=== PATIENT | male | born 1940 | race Caucasian/White ===

== ENCOUNTER → 2021-05-28 10:48 | Outpatient (BNVA) | payer MEDICARE, OTHER, SELFPAY | PROVIDERS: PCP Physician Assistant; Visit Provider Psychiatry & Neurology Neurology | DX: R26.9 Unspecified abnormalities of gait and mobility (principal) | CPT/HCPCS: 99212 ==

== ENCOUNTER → 2021-10-02 09:33 | Outpatient (BNVA) | payer MEDICARE, OTHER, SELFPAY | PROVIDERS: PCP Physician Assistant; Visit Provider Psychiatry & Neurology Neurology | DX: R26.9 Unspecified abnormalities of gait and mobility (principal); R42 Dizziness and giddiness; R29.6 Repeated falls | CPT/HCPCS: 99212 ==

== ENCOUNTER → 2022-01-07 15:24 | Outpatient (BNVA) | payer MEDICARE, OTHER, SELFPAY | PROVIDERS: PCP Physician Assistant; Visit Provider Psychiatry & Neurology Neurology | DX: R26.9 Unspecified abnormalities of gait and mobility (principal); R42 Dizziness and giddiness; R29.6 Repeated falls; I49.9 Cardiac arrhythmia, unspecified | CPT/HCPCS: 99212 ==

== ENCOUNTER → 2022-07-07 11:26 | Outpatient (BNVA) | payer MEDICARE, OTHER, SELFPAY | PROVIDERS: PCP Physician Assistant; Visit Provider Psychiatry & Neurology Neurology | DX: R26.9 Unspecified abnormalities of gait and mobility (principal); R42 Dizziness and giddiness; R29.6 Repeated falls | CPT/HCPCS: 99212 ==

== ENCOUNTER 2023-07-07 08:49 | Outpatient (AMB) | payer MEDICARE, OTHER, SELFPAY ==
--- NOTE | 2023-07-07 08:56 | A.OFFVIS_ITS ---
Intake Vital Signs 07/07/23 08:57 Height 5 ft 8 in Weight 154 lb BMI 23.4 BP 124/80 Blood Pressure Location Rt brachial Position Sitting Respiration 16 Pulse 75 Pulse Source Pulse Oximeter Pulse Oximetry (%) 97 Oxygen Delivery Method Room Air Intake Visit Reasons: 1yr follow up Gait disorder-CONF Intake Note: Pt presents for a one year follow up for gait disorder. Mate Fourth Required: No Allergies No Known Allergies Allergy (Verified 07/07/23 08:56) Medication List - Last Reconciled 07/07/23 by Fernanda Oliveira MD acetaminophen 650 mg PO Q6H calcium carbonate (Calcium) 600 mg PO DAILY cholecalciferol (vitamin D3) 100 mcg PO DAILY hydralazine 25 mg PO DAILY lamotrigine 100 mg PO DAILY metoprolol succinate ER 12.5 mg PO DAILY mirtazapine 30 mg PO BEDTIME multivitamin (Daily Multi-Vitamin tablet) 1 tab PO DAILY pantoprazole 40 mg PO DAILY pravastatin 20 mg PO DAILY tamsulosin 0.4 mg PO DAILY venlafaxine ER 150 mg PO DAILY HPI HPI Comments History of Present Illness Details 82-year-old male comes for follow up of his vertigo multifactorial gait disorder and ICA atherosclerosis. He was doing fine until 2 weeks ago. He developed discomfort in the right groin and swelling. The swelling disappears when he lies supine and worsens when he strains. CT and labs were OK. No falls since last visit . he had mild vertigo and diplopia occasionally.they last for few seconds. He was [facility] a [facility]- walks 1- 1 1/2 miles a day and he does not use a cane. History- On July 25 2021 he was on vacation in [facility]. He was stepping up and fell- unwitnessed fall. He was not using the walker and he is not sure if he held the railing. he had 2 right rib fracture, right clavicle fracture, subdural hematoma- 2mm. he lost consiousness briefly. He came back home 4 days later and was admitted to rehab for 3 weeks . On September 05 he had another fall. He did not have a walker, it was a rainy day, it was when they stopped at a gas station he tripped.He 7 right rib fractures , 5 titanium plates , partially collapsed lung hemothorax , transferred to [facility]. He came to [place] 2 weeks ago and was discharged last week. He is unsteady and weak on the right.According to his daughter when anxious he is worse and he frequently rushes to the bathroom. [facility] Medical History (Updated 07/07/23 @ 09:32 by Fernanda Oliveira MD) Groin fullness Cataract fragments in both eyes following surgery History of fractured rib History of rib fracture ICAO (internal carotid artery occlusion) Gait disorder Vertigo Anxiety HTN (hypertension) Depression Surgical History S/P Mohs surgery for basal cell carcinoma H/O hernia repair History of cholecystectomy Family History Mother Heart disease Cancer Father Bipolar depression Heavy smoker Aneurysm Social History Alcohol intake: never Patient Tobacco Use Status: Never used Tobacco Physical Exam Vital Signs: Last Vital Signs Pulse 75 07/07/23 08:57 Resp 16 07/07/23 08:57 BP 124/80 07/07/23 08:57 Pulse Ox 97 07/07/23 08:57 Oxygen Delivery Method Room Air 07/07/23 08:57 BMI result Body Mass Index 23.4 Const Other: mild swelling in the right inguinal region General: cooperative, healthy appearing, comfortable and no acute distress Nutritional Appearance: average body habitus Orientation/consciousness: patient oriented x3 Neuro General: patient oriented x3, tone normal, moves all extremities, Normal light touch and pain sensation and CN's II-XI intact bilaterally Gait exam (Neuro): Other gait observations present (mild stoop and slowness, good balance, good stride , can walk independently) Coordination: [id number] test normal Psych Appearance: grossly normal Assessment & Plan Assessment & Plan (1) Gait disorder: Code(s): R26.9 - Unspecified abnormalities of gait and mobility (2) Vertigo: Code(s): R42 - Dizziness and giddiness (3) Groin fullness: Comment: ? inguinal hernia Code(s): R19.00 - Intra-abdominal and pelvic swelling, mass and lump, unspecified site Plan will refer to Gen surgery for possible inguinal hernia Continue exercises. Orders: Referrals General Surgery Referral R19.00 - Intra-abdominal and pelvic swelling, mass and lump, unspecified site Coding Level of Care Code Est Pt Level 4 (02750) Diagnoses Gait disorder R26.9 Vertigo R42 Groin fullness R19.00
[2023-07-07 08:57] VITALS: BP 124/80; PULSE 75; RESP 16; O2SAT 97; BMI 23.4
== END 2023-07-07 09:41 | disposition home or self-care (01) ==
LOC: HO.HSMS 08:49
PROVIDERS: PCP Physician Assistant; Visit Provider Psychiatry & Neurology Neurology
DX: R26.9 Unspecified abnormalities of gait and mobility (principal); R42 Dizziness and giddiness; R19.00 Intra-abdominal and pelvic swelling, mass and lump, unspecified site
CPT/HCPCS: 99214

== ENCOUNTER → 2023-07-07 08:49 | Outpatient (BNVA) | payer MEDICARE, OTHER, SELFPAY | PROVIDERS: PCP Physician Assistant; Visit Provider Psychiatry & Neurology Neurology | DX: R26.9 Unspecified abnormalities of gait and mobility (principal); R42 Dizziness and giddiness; R29.6 Repeated falls; R19.00 Intra-abdominal and pelvic swelling, mass and lump, unspecified site; I63.239 Cerebral infarction due to unspecified occlusion or stenosis of unspecified carotid artery | CPT/HCPCS: 99212 ==

== ENCOUNTER 2023-07-19 10:54 | Outpatient (AMB) | payer MEDICARE, OTHER, SELFPAY ==
--- NOTE | 2023-07-19 10:56 | A.OFFVIS_ITS ---
Intake Vital Signs 07/19/23 11:01 Height 5 ft 7 in Weight 154 lb BMI 24.1 BP 160/81 H Blood Pressure Location Rt brachial Position Sitting Pulse 72 Intake Visit Reasons: Abd/pelvic swelling Intake Note: Patient referred by Dr. Oliveira for abd/pelvic swelling. Patient c/o: abd pain. Strike Off Machine Operator Required: No Accompanied by: Spouse Allergies No Known Allergies Allergy (Verified 07/19/23 11:00) HPI HPI Comments History of Present Illness Details Patient presents with his . He has had a several week history of right groin discomfort. Because of progression symptoms, his medical doctor ordered a CT scan which demonstrated right inguinal hernia. Patient otherwise tolerates his diet. He is having regular bowel habits. He has had an unsteady gait and had fallen recently and uses a cane for steadiness. He had to have back surgery as well. Chart was reviewed and patient evaluated [facility] Medical History Groin fullness Cataract fragments in both eyes following surgery History of fractured rib History of rib fracture ICAO (internal carotid artery occlusion) Gait disorder Vertigo Anxiety HTN (hypertension) Depression Surgical History (Updated 07/19/23 @ 11:10 by Prashanth Schmidt MD) History of thoracic surgery S/P Mohs surgery for basal cell carcinoma H/O hernia repair History of cholecystectomy Family History Mother Heart disease Cancer Father Bipolar depression Heavy smoker Aneurysm Social History Alcohol intake: never Patient Tobacco Use Status: Never used Tobacco Physical Exam Vital Signs: Last Vital Signs Pulse 72 07/19/23 11:01 BP 160/81 H 07/19/23 11:01 BMI result Body Mass Index 24.1 Chest Other: Chest breath sounds bilaterally, HS 1 in 2 GI Other: Patient was examined both supine and standing with Valsalva. Left groin negative. Genitalia within normal limits. Moderately sized right inguinal hernia, reducible Assessment & Plan Assessment & Plan (1) Right inguinal hernia: Code(s): K40.90 - Unilateral inguinal hernia, without obstruction or gangrene, not specified as recurrent Plan Risks, benefits, alternatives open right inguinal hernia repair with mesh reviewed the patient included but not limited to bleeding, infection, recurrence, numbness, pain, scarring the patient was to proceed. All questions answered. Arrangements were made for this. Coding Level of Care Code New Pt Level 5 (32303) Diagnoses Right inguinal hernia K40.90
[2023-07-19 11:01] VITALS: BP 160/81; PULSE 72; BMI 24.1
== END 2023-07-19 11:14 | disposition home or self-care (01) ==
PROVIDERS: PCP Physician Assistant; Referring Provider Psychiatry & Neurology Neurology; Visit Provider Surgery
DX: K40.90 Unilateral inguinal hernia, without obstruction or gangrene, not specified as recurrent (principal)
CPT/HCPCS: 99204

== ENCOUNTER → 2023-07-19 10:54 | Outpatient (BNVA) | payer MEDICARE, OTHER, SELFPAY | PROVIDERS: PCP Physician Assistant; Referring Provider Psychiatry & Neurology Neurology; Visit Provider Surgery | DX: K40.90 Unilateral inguinal hernia, without obstruction or gangrene, not specified as recurrent (principal) | CPT/HCPCS: 99202 ==

== ENCOUNTER 2023-08-12 08:43 | Day surgery (SDC) | payer MEDICARE, OTHER, SELFPAY ==
[2023-08-03 13:16] VITALS: BMI 23.8
[2023-08-03 13:21] VITALS: BP 131/72; PULSE 66; RESP 20; O2SAT 96
--- NOTE | 2023-08-11 12:22 | MHC.SHP ---
Pre-Procedural Eval Section A - 24 Hr Update-Section A only Date of Service: 08/11/23 The patient is an INPATIENT: No Changes since office visit: No Cold of Flu in the past 2 weeks, No New Medical Problems, No Changes in Medication and No Patient answered all questions Section B - Complete if H&P > 30 days Chief Complaint: Unilateral inguinal hernia, without obstruction Allergies: Allergies Allergy/AdvReac Type Severity Reaction Status Date / Time No Known Allergies Allergy Verified 07/19/23 11:00 Plan I have reviewed the history and physical and performed a pertinent physical examination on my patient. No changes have occurred unless specified. Time Spent With Patient Time: Total time managing care of this patient today ____ minutes.
[2023-08-12 10:20] VITALS: BP 140/73; PULSE 65; RESP 16; TEMP 36.4; O2SAT 98
[2023-08-12] MEDS: Lactated Ringers 1,000 ML 100 ML IVCONT (10:20)
--- NOTE | 2023-08-12 13:15 | P.CONAN_ITS ---
Documented by User: Fe Riggs NP 08/10/23 14:30 HPI - Anesthesia Eval Consult details Narrative: 82yo M for Right OPEN Hernia Inguinal Reducible with mesh, 08/12/23 No recent illness No CP/SOB with very limited activity d/t hernia GERD ICA occlusion - follows [facility] Hx fall with fx ribs and punctured lung R side - s/p evacuation of fibrothorax/hardware Follows [facility] for htn, 2021 w/u for recurrent falls (holter showed freq PVC's, no arrthymia/pauses) PMFSH Active Problems Active Problems: All Active Problems Right inguinal hernia (Acute) Irregular heart beat (Acute) Falls frequently (Acute) Groin fullness (Acute) Vertigo (Acute) Gait disorder (Acute) Anxiety (Acute) HTN (hypertension) (Acute) Depression (Acute) Past Medical History Medical History (Updated 08/03/23 @ 13:07 by Candi Douglas RN) Bleeding gastric ulcer GERD (gastroesophageal reflux disease) Chronic renal insufficiency Bipolar disorder Fracture, ribs Irregular heartbeat Multifactorial gait disorder Basal cell carcinoma Groin fullness Cataract fragments in both eyes following surgery History of fractured rib ICAO (internal carotid artery occlusion) Gait disorder Vertigo Anxiety HTN (hypertension) Depression Family History Family History Mother Heart disease Cancer Father Bipolar depression Heavy smoker Aneurysm Family history of problems with anesthesia: No Surgical History Surgical History (Updated 08/03/23 @ 13:09 by Candi Douglas RN) History of esophagogastroduodenoscopy (EGD) H/O colonoscopy Hx of bilateral cataract extraction History of thoracic surgery S/P Mohs surgery for basal cell carcinoma H/O hernia repair History of cholecystectomy History of Problems with Anesthesia: No Social History Social History Are you a primary home visit field care manager to a significant other at home: No Do you presently have visiting nurse or other home services: No Alcohol intake: never Patient Tobacco Use Status: Never used Tobacco Have you been hit, kicked, punched, or otherwise hurt by someone within the past year? If so, by whom?: No Are you DNR?: No Advance Directives: Yes ( is HCP) Advance Directives Information Provided: Yes (will bring copy DOS) Advance Directives on File: Yes Advance Directives Date on File: 08/12/23 Recently lost weight without trying: No Eating poorly because of decreased appetite: No Nutrition Risks: Surgical patient >75years Poor oral hygiene: No (possible one extracted molar upper right) Meds Allergies Allergy/AdvReac Type Severity Reaction Status Date / Time No Known Allergies Allergy Verified 07/19/23 11:00 Home Medications ?Medication ?Instructions ?Recorded ?Confirmed ?Last Taken ?Type lamotrigine 100 mg tablet 100 mg PO QAM 05/28/21 08/12/23 08/11/23 History mirtazapine 30 mg tablet 30 mg PO BEDTIME 05/28/21 08/12/23 08/11/23 History tamsulosin 0.4 mg capsule 0.4 mg PO BEDTIME 05/28/21 08/12/23 08/11/23 History venlafaxine 150 mg 150 mg PO QAM 05/28/21 08/12/23 08/11/23 History capsule,extended release 24 hr acetaminophen 325 mg tablet 650 mg PO TID 10/02/21 08/03/23 Unknown History pantoprazole 40 mg tablet,delayed 40 mg PO QAM 10/02/21 08/12/23 08/12/23 History release pravastatin 20 mg tablet 20 mg PO BEDTIME 10/02/21 08/12/23 08/11/23 History calcium carbonate (Calcium 600) 600 mg PO DAILY 01/07/22 08/12/23 08/11/23 History cholecalciferol (vitamin D3) 50 100 mcg PO DAILY 01/07/22 08/12/23 08/11/23 History mcg (2,000 unit) capsule hydralazine 25 mg tablet 50 mg PO QAM 01/07/22 08/12/23 08/12/23 History multivitamin (Daily Multi-Vitamin 1 tab PO DAILY 01/07/22 08/12/23 08/11/23 History tablet) metoprolol succinate 25 mg 12.5 mg PO QPM 07/07/23 08/12/23 08/11/23 History tablet,extended release 24 hr lorazepam 0.5 mg tablet 0.5 mg PO DAILY PRN Anxiety 07/19/23 08/03/23 Unknown History alendronate 70 mg tablet 70 mg PO QWEEK 08/03/23 08/03/23 Unknown History hydralazine 25 mg tablet 25 mg PO BEDTIME 08/03/23 08/12/23 08/11/23 History lamotrigine 25 mg tablet 50 mg PO BEDTIME 08/03/23 08/12/23 08/11/23 History Exam Height,Weight and Vital Signs: Height 5 ft 7 in Weight 68.946 kg Vital Signs Pulse Rate 66 08/03/23 13:21 Respiratory Rate 20 08/03/23 13:21 Blood Pressure 131/72 08/03/23 13:21 Pulse Oximetry 96 08/03/23 13:21 Oxygen Delivery Method Room Air 08/03/23 13:21 Pulse Rate 66 08/03/23 13:21 Respiratory Rate 20 08/03/23 13:21 Blood Pressure 131/72 08/03/23 13:21 Pulse Oximetry 96 08/03/23 13:21 Oxygen Delivery Method Room Air 08/03/23 13:21 Pertinent Lab Results Pertinent Lab Results: CBC and CMP 06/2023 from outside facility WNL except mild elevated BUN/Creat (known CKD) Narrative Narrative: EKG 04/2023 SR @ 69 LVH Borderline prolonged QTc Carotid US 2020 Bilat ICA <50% stenosis Heterogenic plaque Stress Echo 05/2023 [place], freq PVC Airway Mallampati Class: II TM Dist: >3cm Neck ROM: Full Loose/Missing/Broken Teeth: No Heart: RRR Lungs: CTAB Assessment and Plan Assessment Anesthesia Assessment: Anesthesia Plan Discussed and PAT Visit Final Anesthetic Review Family History of Problems with Anesthesia: No History of Problems with Anesthesia: No Documented by User: Megan Mckeon DO 08/12/23 13:32 REPLACED BY [facility] Past Medical History Medical History (Updated 08/03/23 @ 13:07 by Candi Douglas RN) Bleeding gastric ulcer GERD (gastroesophageal reflux disease) Chronic renal insufficiency Bipolar disorder Fracture, ribs Irregular heartbeat Multifactorial gait disorder Basal cell carcinoma Groin fullness Cataract fragments in both eyes following surgery History of fractured rib ICAO (internal carotid artery occlusion) Gait disorder Vertigo Anxiety HTN (hypertension) Depression Family History Family History Mother Heart disease Cancer Father Bipolar depression Heavy smoker Aneurysm Family history of problems with anesthesia: No Surgical History Surgical History (Updated 08/03/23 @ 13:09 by Candi Douglas RN) History of esophagogastroduodenoscopy (EGD) H/O colonoscopy Hx of bilateral cataract extraction History of thoracic surgery S/P Mohs surgery for basal cell carcinoma H/O hernia repair History of cholecystectomy History of Problems with Anesthesia: No Social History Social History Are you a primary home visit field care manager to a significant other at home: No Do you presently have visiting nurse or other home services: No Alcohol intake: never Patient Tobacco Use Status: Never used Tobacco Have you been hit, kicked, punched, or otherwise hurt by someone within the past year? If so, by whom?: No Are you DNR?: No Advance Directives: Yes ( is HCP) Advance Directives Information Provided: Yes (will bring copy DOS) Advance Directives on File: Yes Advance Directives Date on File: 08/12/23 Recently lost weight without trying: No Eating poorly because of decreased appetite: No Nutrition Risks: Surgical patient >75years Poor oral hygiene: No (possible one extracted molar upper right) Meds Allergies Allergy/AdvReac Type Severity Reaction Status Date / Time No Known Allergies Allergy Verified 07/19/23 11:00 Home Medications ?Medication ?Instructions ?Recorded ?Confirmed ?Last Taken ?Type lamotrigine 100 mg tablet 100 mg PO QAM 05/28/21 08/12/23 08/11/23 History mirtazapine 30 mg tablet 30 mg PO BEDTIME 05/28/21 08/12/23 08/11/23 History tamsulosin 0.4 mg capsule 0.4 mg PO BEDTIME 05/28/21 08/12/23 08/11/23 History venlafaxine 150 mg 150 mg PO QAM 05/28/21 08/12/23 08/11/23 History capsule,extended release 24 hr acetaminophen 325 mg tablet 650 mg PO TID 10/02/21 08/03/23 Unknown History pantoprazole 40 mg tablet,delayed 40 mg PO QAM 10/02/21 08/12/23 08/12/23 History release pravastatin 20 mg tablet 20 mg PO BEDTIME 10/02/21 08/12/23 08/11/23 History calcium carbonate (Calcium 600) 600 mg PO DAILY 01/07/22 08/12/23 08/11/23 History cholecalciferol (vitamin D3) 50 100 mcg PO DAILY 01/07/22 08/12/23 08/11/23 History mcg (2,000 unit) capsule hydralazine 25 mg tablet 50 mg PO QAM 01/07/22 08/12/23 08/12/23 History multivitamin (Daily Multi-Vitamin 1 tab PO DAILY 01/07/22 08/12/23 08/11/23 History tablet) metoprolol succinate 25 mg 12.5 mg PO QPM 07/07/23 08/12/23 08/11/23 History tablet,extended release 24 hr lorazepam 0.5 mg tablet 0.5 mg PO DAILY PRN Anxiety 07/19/23 08/03/23 Unknown History alendronate 70 mg tablet 70 mg PO QWEEK 08/03/23 08/03/23 Unknown History hydralazine 25 mg tablet 25 mg PO BEDTIME 08/03/23 08/12/23 08/11/23 History lamotrigine 25 mg tablet 50 mg PO BEDTIME 08/03/23 08/12/23 08/11/23 History Exam Exam Date and Time: August 12, 2023 1320 Height,Weight and Vital Signs: Height 5 ft 7 in Weight 68.946 kg Vital Signs Pulse Rate 66 08/03/23 13:21 Respiratory Rate 20 08/03/23 13:21 Blood Pressure 131/72 08/03/23 13:21 Pulse Oximetry 96 08/03/23 13:21 Oxygen Delivery Method Room Air 08/03/23 13:21 Pulse Rate 66 08/03/23 13:21 Respiratory Rate 20 08/03/23 13:21 Blood Pressure 131/72 08/03/23 13:21 Pulse Oximetry 96 08/03/23 13:21 Oxygen Delivery Method Room Air 08/03/23 13:21 Vital Signs Pulse Rate 66 08/03/23 13:21 Respiratory Rate 20 08/03/23 13:21 Blood Pressure 131/72 08/03/23 13:21 Pulse Oximetry 96 08/03/23 13:21 Oxygen Delivery Method Room Air 08/03/23 13:21 Temperature 97.5 F 08/12/23 10:20 Pulse Rate 65 08/12/23 10:20 Respiratory Rate 16 08/12/23 10:20 Blood Pressure 140/73 H 08/12/23 10:20 Pulse Oximetry 98 08/12/23 10:20 Oxygen Delivery Method Room Air 08/12/23 10:20 Airway Mallampati Class: II TM Dist: >3cm Neck ROM: Full Loose/Missing/Broken Teeth: No (patient denies any loose or broken teeth) Assessment and Plan Final Anesthetic Review Family History of Problems with Anesthesia: No History of Problems with Anesthesia: No NPO: Yes ASA Class: III Final Preanesthetic Review: No Changes in Pt Med Stat, Meds/Allgs Chart Reviewed, Consent Obtained/Reviewed and Anes Risks/Benef Reviewed Patient Risk: Intermediate Procedure Risk: Low Anesthetic Plan Anesthetic Plan: MAC: and Agree w/ Assess. and Plan Disposition: Standard PACU
--- NOTE | 2023-08-12 14:04 | P.OP_ITS ---
Operative Note Operative Note Date of Service: 08/12/23 Narrative: Preoperative diagnosis: [] Symptomatic right inguinal hernia Postop diagnosis: [] The same Procedure [] open repair right inguinal hernia with Bard mesh Surgeon: [] Brayan Plastic Boat Patcher: [] Type of Anesthesia: [] MAC Indication for surgery: [] Very large indirect right inguinal hernia. No direct hernia. Findings: [] Patient brought to the operating room, placed on operative table in supine position, after an adequate level of MAC anesthesia was induced, the right groin was prepped and draped in usual sterile fashion. Ilioinguinal block with 0.5% Marcaine/1% lidocaine was initially undertaken and a small right para inguinal incision was made and carried down through skin, subcutaneous tissue, and Stephanie's fascia. External oblique fibers were opened their direction with care to isolate and preserve the ilioinguinal nerve throughout the procedure. Spermatic cord was identified and retracted from the field. Exploration of the cord demonstrated very large indirect hernia sac which was reduced. No direct hernia was demonstrated. A Bard plug was placed in the indirect defect and sutured inferiorly to the inguinal ligament, and superiorly to the transversalis fascia using interrupted 0 Ethibond suture. At completion of procedure, mesh was in good position and covered the inguinal floor as well with no tension or gallops. Wound was irrigated, secured hemostasis, and closed in the following manner; external oblique fascia was closed using running 2-0 Vicryl suture. Stephanie's fascia was reapproximated using interrupted 3-0 Vicryl sutures. Interrupted inverted deep dermal 3-0 Vicryl sutures followed by running subcuticular 4-0 Vicryl sutures were placed. Steri-Strips and sterile dressings were applied. Incision was infiltrated 0.5% Marcaine/1% lidocaine at completion. Sponge, needle, and instrument counts were reported correct. Patient tolerated the procedure well and emerged from anesthesia stable condition. EBL minimal. Ipsilateral testicle was intrascrotal at completion.
[2023-08-12 14:10] VITALS: BP 149/84; PULSE 81; RESP 18; TEMP 36.6; O2SAT 94
[2023-08-12 14:25] VITALS: BP 156/79; PULSE 73; RESP 20; O2SAT 94
[2023-08-12 14:38] VITALS: RESP 20
[2023-08-12] MEDS: fentaNYL citrate/PF 100 MCG/2 ML VIAL 25 MCG IVPUSH (14:38)
[2023-08-12 14:40] VITALS: BP 150/82; PULSE 70; RESP 18; O2SAT 92
[2023-08-12 14:43] VITALS: BP 156/85; PULSE 66; RESP 18; O2SAT 94
== END 2023-08-12 15:33 | disposition home or self-care (01) ==
PROVIDERS: PCP Physician Assistant; Visit Provider Surgery
PROC: (CPT 49505; principal; 2023-08-12 12:00)
DX: K40.90 Unilateral inguinal hernia, without obstruction or gangrene, not specified as recurrent (principal); I12.9 Hypertensive chronic kidney disease with stage 1 through stage 4 chronic kidney disease, or unspecified chronic kidney disease; N18.31 Chronic kidney disease, stage 3a; R26.9 Unspecified abnormalities of gait and mobility; F32.A Depression, unspecified; F41.9 Anxiety disorder, unspecified; R42 Dizziness and giddiness; Z79.899 Other long term (current) drug therapy; Z91.81 History of falling; Z87.81 Personal history of (healed) traumatic fracture; Z98.890 Other specified postprocedural states
CPT/HCPCS: 49505; C1781; J0131; J0690; J1100; J2704; J2795; J3010

== ENCOUNTER → 2023-08-12 08:43 | Outpatient (BNV) | payer MEDICARE, OTHER, SELFPAY | PROVIDERS: PCP Physician Assistant; Visit Provider Surgery | DX: K40.90 Unilateral inguinal hernia, without obstruction or gangrene, not specified as recurrent (principal) | CPT/HCPCS: 49505 ==

== ENCOUNTER 2023-08-23 10:43 | Outpatient (AMB) | payer MEDICARE, OTHER, SELFPAY ==
--- NOTE | 2023-08-23 10:52 | MHC.OFFVIS ---
Intake Visit Reasons: S/P RIH w/mesh Intake Note: Patient here s/p RIH w/mesh. Reports incisions healing well. Denies redness, oozing. Patient c/o: pain, tenderness with touch. Rx pain meds caused constipation. Daughter is RN and advised alternating tylenol with ibuprofen as needed. SX: 08-12-23. Diving Fisher Required: No Accompanied by: Spouse Allergies No Known Allergies Allergy (Verified 08/23/23 10:53) HPI Comments Details: Patient presents with his for follow-up. Aside from incisional discomfort which is improving, patient is otherwise doing well. He has tolerating a diet. He has history of constipation but had not an issue with it. He is increasing his activity level. [facility] Medical History Bleeding gastric ulcer GERD (gastroesophageal reflux disease) Chronic renal insufficiency Bipolar disorder Fracture, ribs Irregular heartbeat Multifactorial gait disorder Basal cell carcinoma Groin fullness Cataract fragments in both eyes following surgery History of fractured rib ICAO (internal carotid artery occlusion) Gait disorder Vertigo Anxiety HTN (hypertension) Depression Surgical History Right inguinal hernia (08/12/23) History of esophagogastroduodenoscopy (EGD) H/O colonoscopy Hx of bilateral cataract extraction History of thoracic surgery S/P Mohs surgery for basal cell carcinoma H/O hernia repair History of cholecystectomy Family History Mother Heart disease Cancer Father Bipolar depression Heavy smoker Aneurysm Social History Are you a primary aged or disabled care worker to a significant other at home: No Do you presently have visiting nurse or other home services: No Alcohol intake: never Comment: counts correct Patient Tobacco Use Status: Never used Tobacco Advance Directives Date on File: 08/12/23 Physical Exam GI Other: Abdomen is soft. Wound clean dry and intact healing well Assessment & Plan Assessment & Plan (1) Postop check: Code(s): Z09 - Encounter for follow-up examination after completed treatment for conditions other than malignant neoplasm Category: Surgical Plan Patient and have been given local instructions, and patient will otherwise follow-up p.r.n.. All questions answered. Coding Level of Care Code Global (81301) Diagnoses Postop check Z09
== END 2023-08-23 11:11 | disposition home or self-care (01) ==
PROVIDERS: PCP Physician Assistant; Visit Provider Surgery
DX: Z09 Encounter for follow-up examination after completed treatment for conditions other than malignant neoplasm (principal)
CPT/HCPCS: 99024

== ENCOUNTER → 2023-08-23 10:43 | Outpatient (BNVA) | payer MEDICARE, OTHER, SELFPAY | PROVIDERS: PCP Physician Assistant; Visit Provider Surgery | DX: Z09 Encounter for follow-up examination after completed treatment for conditions other than malignant neoplasm (principal); Z87.19 Personal history of other diseases of the digestive system | CPT/HCPCS: 99212 ==

== ENCOUNTER 2024-10-17 08:58 | Outpatient (AMB) | payer MEDICARE, OTHER, SELFPAY ==
--- NOTE | 2024-10-17 09:01 | A.OFFVIS_ITS ---
Vital Signs 10/17/24 09:04 Height 5 ft 7 in Weight 148 lb BMI 23.2 BP 132/80 Blood Pressure Location Rt brachial Position Sitting Intake Visit Reasons: Follow up Intake Note: Patient referred to general surgery note scanned 08/22/24 Allergies No Known Allergies Allergy (Verified 10/17/24 09:05) HPI Comments Details: 83-year-old male comes for follow up of his vertigo multifactorial gait disorder and ICA atherosclerosis after 18 mths . He had right femur fracture July 2024 after a fall and had surgery. He was reaching for water when he was in his garage he backed up or tripped . He was on walker and now he is using a cane . He still has 2 sessions of PT .He denies dizziness . History- On July 25 2021 he was on vacation in [facility]. He was stepping up and fell- unwitnessed fall. He was not using the walker and he is not sure if he held the railing. he had 2 right rib fracture, right clavicle fracture, subdural hematoma- 2mm. he lost consiousness briefly. He came back home 4 days later and was admitted to rehab for 3 weeks . On September 05 he had another fall. He did not have a walker, it was a rainy day, it was when they stopped at a gas station he tripped.He 7 right rib fractures , 5 titanium plates , partially collapsed lung hemothorax , transferred to [facility]. He came to [place] 2 weeks ago and was discharged last week. He is unsteady and weak on the right.According to his daughter when anxious he is worse and he frequently rushes to the bathroom. [facility] Medical History Bleeding gastric ulcer GERD (gastroesophageal reflux disease) Chronic renal insufficiency Bipolar disorder Fracture, ribs Irregular heartbeat Multifactorial gait disorder Basal cell carcinoma Groin fullness Cataract fragments in both eyes following surgery History of fractured rib ICAO (internal carotid artery occlusion) Gait disorder Vertigo Anxiety HTN (hypertension) Depression Surgical History Right inguinal hernia (08/12/23) History of esophagogastroduodenoscopy (EGD) H/O colonoscopy Hx of bilateral cataract extraction History of thoracic surgery S/P Mohs surgery for basal cell carcinoma H/O hernia repair History of cholecystectomy Family History Mother Heart disease Cancer Father Bipolar depression Heavy smoker Aneurysm Social History Are you a primary career development coordinator/teacher to a significant other at home: No Do you presently have visiting nurse or other home services: No Alcohol intake: never Comment: counts correct Patient Tobacco Use Status: Never used Tobacco Advance Directives Date on File: 08/12/23 Physical Exam Vital Signs: Last Vital Signs BP 132/80 10/17/24 09:04 BMI result Body Mass Index 23.2 Const General: cooperative, healthy appearing, comfortable and no acute distress Nutritional Appearance: average body habitus Orientation/consciousness: patient oriented x3 Neuro General: patient oriented x3, tone normal, moves all extremities, Normal light touch and pain sensation and CN's II-XI intact bilaterally Gait exam (Neuro): Other gait observations present (mild stoop and slowness, good balance, good stride , can walk good with can) Coordination: [id number] test normal Psych Appearance: grossly normal Assessment & Plan Assessment & Plan (1) Gait disorder: Code(s): R26.9 - Unspecified abnormalities of gait and mobility Category: Medical (2) Vertigo: Code(s): R42 - Dizziness and giddiness Category: Medical Plan Discussed fall prevention Continue exercises. Coding Level of Care Code Est Pt Level 4 (96825) Diagnoses Gait disorder R26.9 Vertigo R42
[2024-10-17 09:04] VITALS: BP 132/80; BMI 23.2
--- OUTSIDE RECORDS SUMMARY | 2024-10-17 09:12 | XMS_ITS | Clinical Summary ---
Author Organization [facility] Address [address] [place] [address] Care Team Providers Care Inorganic Chemistry Professor Name Role Phone Anamaria Lechuga PA-C Primary Care Provider Allergies No known active allergies Medications Medication Sig Dispensed Refills Start Date End Date Status amLODIPine (NORVASC) tablet 5 mg Take 5 mg by mouth daily. 0 09/15/2016 Active pantoprazole (PROTONIX) 40 MG tablet Take 40 mg by mouth daily. 0 07/29/2021 Active venlafaxine (EFFEXOR-XR) 150 MG 24 hr capsule Take 150 mg by mouth daily. 0 02/18/2010 Active lamoTRIgine (LaMICtal) 100 MG tablet Take 1 tablet by mouth daily. 0 02/18/2010 Active hydrALAZINE (APRESOLINE) 50 MG tablet Take 50 mg by mouth every morning. 50 mg (1 tab) by mouth every morning and 2 mg (1/2 tab) by mouth every evening 0 07/10/2021 Active tamsulosin (FLOMAX) 0.4 MG CAPS Take 1 capsule by mouth every evening. 0 Active pravastatin (PRAVACHOL) tablet 20 mg Take 1 tablet by mouth every night at bedtime. 0 07/29/2021 Active LORazepam (ATIVAN) 0.5 MG tablet Take 1 tablet by mouth 3 (three) times a day as needed. 0 12/20/2007 Active mirtazapine (REMERON) 30 MG tablet Take 1 tablet by mouth every night at bedtime as needed. 0 02/18/2010 Active acetaminophen (TYLENOL) 325 MG tablet Take 2 tablets (650 mg total) by mouth every 6 (six) hours. 120 tablet 0 09/15/2021 Active docusate sodium 100 MG CAPS Take 100 mg by mouth 2 (two) times a day as needed for constipation. 10 capsule 0 09/15/2021 Active ibuprofen 600 MG tablet Take 1 tablet (600 mg total) by mouth every 8 (eight) hours. 30 tablet 0 09/15/2021 Active methocarbamol (ROBAXIN) 500 MG tablet Take 1 tablet (500 mg total) by mouth 3 (three) times a day. 240 tablet 0 09/15/2021 Active oxyCODONE (ROXICODONE) 5 MG immediate release tablet Take 1 tablet (5 mg total) by mouth every 4 (four) hours as needed. 12 tablet 0 09/15/2021 Active Additional Information Patient not taking.Reason: Other, Reported on 09/30/2021 polyethylene glycol (MIRALAX) 17 g packet Take 17 g by mouth daily. 14 each 0 09/16/2021 Active Additional Information Patient not taking.Reason: Other, Reported on 09/30/2021 gabapentin (NEURONTIN) 100 MG capsuleIndications :Closed fracture of multiple ribs of right side with routine healing, subsequent encounter Take 1 capsule (100 mg total) by mouth 3 (three) times a day. 90 capsule 0 01/03/2023 Active Active Problems Problem Noted Date Diagnosed Date Multiple rib fractures involving four or more ri bs 09/08/2021 GERD (gastroesophageal reflux disease) Closed fracture of multiple ribs of right side 0 09/07/2021 Closed fracture of right clavicle 07/25/2021 Traumatic subdural hemorrhage 07/25/2021 Anxiety and depression 04/06/2018 Overview: On psych f/u CKD (chronic kidney disease) stage 3, GFR 30-59 ml/min 03/27/2018 Hyperlipidemia 12/15/2017 Hypertension 12/15/2017 Social History Tobacco Use Types Packs/Day Years Used Date Smoking Tobacco: Never Smokeless Tobacco: Never Tobacco Cessation:Counseling Given: Not Answered Alcohol Use Standard Drinks/Week Comments Never 0 (1 standard drink = 0.6 oz pur e alcohol) Sex and Gender Information Value Date Recorded Sex Assigned at Male 09/08/2021 11:12 AM EDT Gender Identity Not on file Sexual Orientation Not on file Job Start Date Occupation Industry Not on file Not on file Not on file Last Filed Vital Signs Vital Sign Reading Time Taken Comments Blood Pressure 143/87 01/03/2023 11:05 AM EDT Pulse 77 01/03/2023 11:05 AM EDT Temperature 36.3 C (97.4 F) 01/03/2023 11:05 AM EDT Respiratory Rate 18 01/03/2023 11:05 AM EDT Oxygen Saturation 97% 01/03/2023 11:05 AM EDT Inhaled Oxygen Concentration - - Weight 73 kg (161 lb) 09/13/2021 5:59 AM EDT Height 172.7 cm (5' 8 ) 09/13/2021 5:59 AM EDT Body Mass Index 24.48 09/13/2021 5:59 AM EDT Plan of Treatment Health Maintenance Due Date Last Done Comments Depression Screening 1952 Preventative Health Evaluation 12/05/1959 DTap / Tdap / Td (1 - Tdap) 1960 Shingrix-Zoster Vaccine (1 of 2) 12/05/1991 Fall Risk Assessment 2006 RSV Adult > 60+ Yrs or (1 - 1-dose 75+ series) 2016 COVID-19 Vaccine ( season) 2023 01/05/2022, 12/18/2020, 05/21/2020, Additional history exists Influenza Vaccine (#1) 2024 12/25/2016 Pneumococcal Vaccine Completed 06/13/2019, 01/26/20 12 Hepatitis B Vaccines Aged Out No long er eligible based on patient's age to complete this topic RSV Ped < 20 months Aged Out No longe r eligible based on patient's age to complete this topic Medical Devices Implanted Type Area Call Specialist Device Identifier Shelf Expiration Date Model / Serial / Lot Drive X Lock Cap Ribfix Adv Biom-Kleber [id number] 2 - [id number] Implanted:Qty: 10 on 09/08/2021 by Corona Chacko MD at [facility] Right: Thoracic BIOMET - MICRO FIXATION [id number] / / Washer 9.5mm Ribfix Adv Biom-Kleber [id number] 3 - [id number] Implanted:Qty: 10 on 09/08/2021 by Corona Chacko MD at [facility] Right: Thoracic BIOMET - MICRO FIXATION [id number] / / Bridge Long Post 23mm Ribfix Adv Biom-Kleber [id number] 0 - [id number] Implanted:Qty: 5 on 09/08/2021 by Corona Chacko MD at [facility] Right: Thoracic BIOMET - MICRO FIXATION [id number] / / Advance Directives For more information, please contact: [phone] Documents on File Type Date Recorded Patient Chain Sales Representative Expl anation Advance Directive and Living Will 09/08/2021 12:22 PM Latest Code Status on File Code Status Date Activated Date Inactivated Comments Full Code 09/07/2021 6:22 PM 09/16/2021 1:21 AM This c ode status was ascertained in the following way: discussion with patient . Care Teams Inorganic Chemistry Professor Relationship Specialty Start Date End Date Anamaria Lechuga PA-C [address] [place] [address] PCP - General Physician Injection Molder 09/07/21
--- OUTSIDE RECORDS SUMMARY | 2024-10-17 09:12 | XMS_ITS | Encounter Summary ---
Author Organization [facility] Address [address] [place] [address] Care Team Providers Care Furnace Attendant Name Role Phone Anamaria Lechuga Primary Care Provider + Encounter Details Date Type Department Care Team (Late st Contact Info) Description 08/02/2024 Lab Requisition [facility] - Main Lab [address] [facility] [place] [address] Alice Howell MD [address] [place] [id number] Encounter for other general examination Social History Tobacco Use Types Packs/Day Years Used Date Smoking Tobacco: Never Smokeless Tobacco: Never Alcohol Use Standard Drinks/Week Comments Not Currently 0 (1 standard drink = 0.6 oz pur e alcohol) Housing Instability Answer Date Recorde d Are you worried that in the next 2 months you may not have stable housing? No 08/03/2024 Food Access & Nutrition Answer Date Rec orded Do you have access to a vari ety of food including fruits and vegetables? Yes 08/03/2024 Health Literacy Answer Date Recorded How often do you need to hav e someone help you when you read instructions, pamphlets, or other written material from your doctor or pharmacy? Never 08/03/2024 Caregiver: How often do you need to have someone help you when you read instructions, pamphlets, or other written material from your doctor or pharmacy? Not on file 08/03/2024 Financial Risk Answer Date Recorded How hard is it for you to pa y for the very basics like food, housing, medical care, and air conditioning / heating? Not very hard 08/03/2024 Transportation Answer Date Recorded Has the lack of transportati on kept you from meetings, work, or from getting things needed for daily living? No Has the lack of transportati on kept you from medical appointments or from getting medications? No 08/03/2024 Social Isolation Answer Date Recorded How often do you feel lonely or isolated from those around you? Sometimes 08/03/2024 Food Risk Answer Date Recorded Within the past 12 months we worried whether our food would run out before we got money to buy more. Never true 08/03/2024 Within the past 12 months th e food we bought just didn't last and we didn't have money to get more. Never true 08/03/2024 Dependent Care Answer Date Recorded Do you need help finding or paying for care for your loved ones. For example, child development teacher or elderly care for an older adult? Unable to respond 08/03/2024 Education Answer Date Recorded Do you think completing more education or training, like finishing a GED, going to college, or learning a trade, would be helpful for you? No 08/03/2024 Employment and Income Answer Date Recor ded During the last four weeks, have you been actively looking for work? No 08/03/2024 Living Situation Answer Date Recorded What is your living situation? 0 08/03/2024 Sex and Gender Information Value Date Recorded Sex Assigned at Male 05/25/2024 2:25 PM EST Legal Sex Male 6:05 AM EST Gender Identity Male 05/25/2024 2:25 PM EST Sexual Orientation Not on file documented as of this encounter Plan of Treatment Upcoming Encounters Date Type Department Care Team (Late st Contact Info) Description 10/30/2024 3:00 PM EDT Consult Endocrinology - [address] [address] Benji Madrid MD [address] [place] [address] 01/15/2025 11:00 AM EDT Office Visit Internal Medicine - [place] [address] [facility] [address] [place] [address] Anamaria Lechuga PA [address] [address] documented as of this encounter Procedures Procedure Name Priority Date/Time Associated Diagnosis Comments FOLATE Routine 08/02/2024 4:58 AM EDT Encounter for other general examination VITAMIN B12 Routine 08/02/2024 4:58 AM EDT Encounter for other general examination BASIC METABOLIC PANEL Routine 08/02/2024 4:58 AM EDT Encounter for other general examination documented in this encounter Results * (ABNORMAL) Folate (08/02/2024 4:58 AM EDT) Folate >20.0(H) 2.8 - 17.0 ng/ml LAB CHEMISTRY METHOD 08/02/2024 1:00 PM EDT [facility] Blood Venous blood specimen / Unknown Venipuncture / Unknown 08/02/2024 4:58 AM EDT 08/02/2024 8:12 AM EDT us Alice Howell MD LAB BLOOD ORDERABLES Final Res ult Performing Organization Address [facility] Co de Phone Number [facility] [address] [place] [address], * Vitamin B12 (08/02/2024 4:58 AM EDT) Vitamin B-12 357 250 - 900 pcg/mL LAB CHEMISTRY METHOD 08/02/2024 1:00 PM EDT [facility] Blood Venous blood specimen / Unknown Venipuncture / Unknown 08/02/2024 4:58 AM EDT 08/02/2024 8:12 AM EDT us Alice Howell MD LAB BLOOD ORDERABLES Final Res ult [facility] [address] [place] [address], [place] [phone] * Basic metabolic panel (08/02/2024 4:58 AM EDT) Sodium 139 133 - 145 mmol/L LAB CHEMISTRY METHOD 08/02/2024 9:10 AM [facility] Potassium 4.4 3.5 - 5.5 mmol/L LAB CHEMISTRY METHOD 08/02/2024 9:10 AM [facility] Chloride 107 96 - 110 mmol/L LAB CHEMISTRY METHOD 08/02/2024 9:10 AM [facility] CO2 28 21 - 32 mmol/L LAB CHEMISTRY METHOD 08/02/2024 9:10 AM [facility] Anion Gap 4 3 - 11 LAB CHEMISTRY METHOD 08/02/2024 9:10 AM [facility] Glucose 87 70 - 100 mg/dL LAB CHEMISTRY METHOD 08/02/2024 9:10 AM [facility] BUN 22 5 - 25 mg/dL LAB CHEMISTRY METHOD 08/02/2024 9:10 AM [facility] Creatinine 1.19 0.70 - 1.30 mg/dL LAB CHEMISTRY METHOD 08/02/2024 9:10 AM [facility] eGFR 61 >=60 mL/min/1. 73m2 LAB CHEMISTRY METHOD 08/02/2024 9:10 AM [facility] Comment:Calculation based on the Chronic Kidney Disease Epidemiology Collaboration (CKD-EPI) equation refit without adjustment for race. BUN/Creatinine Ratio 18.5 LAB CHEMISTRY METHOD 08/02/2024 9:10 AM [facility] Calcium 9.4 8.5 - 10.5 mg/dL LAB CHEMISTRY METHOD 08/02/2024 9:10 AM [facility] Blood Venous blood specimen / Unknown Venipuncture / Unknown 08/02/2024 4:58 AM EDT 08/02/2024 8:12 AM EDT us Alice Howell MD LAB BLOOD ORDERABLES Final Res ult [facility] [address] [place] [address], documented in this encounter Visit Diagnoses Diagnosis Encounter for other general examination documented in this encounter Care Teams Furnace Attendant Relationship Specialty Start Date End Date Anamaria Lechuga PA [address] [place] [address] PCP - General Primary Care 05/03/24 documented as of this encounter
== END 2024-10-17 09:30 | disposition home or self-care (01) ==
LOC: HO.HSMS 08:59
PROVIDERS: PCP Physician Assistant; Visit Provider Psychiatry & Neurology Neurology
DX: R26.9 Unspecified abnormalities of gait and mobility (principal); R42 Dizziness and giddiness
CPT/HCPCS: 99214

== ENCOUNTER → 2024-10-17 08:58 | Outpatient (BNVA) | payer MEDICARE, OTHER, SELFPAY | PROVIDERS: PCP Physician Assistant; Visit Provider Psychiatry & Neurology Neurology | DX: R42 Dizziness and giddiness (principal); R26.9 Unspecified abnormalities of gait and mobility | CPT/HCPCS: 99212 ==